=== PATIENT | male | born 1940 | race Caucasian/White ===

== ENCOUNTER 2020-09-19 19:51 | Inpatient (IN) | payer MEDICARE, OTHER ==
[~2020-09-19] VITALS: Ht 172.7 cm; Wt 68.9 kg
[2020-09-19 20:00] VITALS: BP 165/76
[2020-09-19] MEDS ORDERED: TEMAZEPAM 7.5 MG CAPSULE PO PRN (20:15)
[2020-09-19] MEDS ORDERED: MAG HYDROX/AL HYDROX/SIMETH 30 ML LIQUID UDC PO PRN (20:15)
[2020-09-19] MEDS ORDERED: MAGNESIUM HYDROXIDE 30 ML LIQUID UDC PO PRN (20:15)
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
[2020-09-19] MEDS: CLONIDINE HCL 0.1 MG TABLET PO PRN (22:02)
--- NOTE | 2020-09-19 22:45 | NUR ---
Pt's BP was 165/76 on admission. PRN Clonodin 0.1 mg Po was given at 2202. BP was rechecked to be 135/65
[2020-09-19 23:25] VITALS: BP 135/65
[2020-09-20 07:30] VITALS: BP 162/89
[2020-09-20 08:28] LABS: BILIRUBIN,TOTAL 0.4 mg/dL (0.2-1.0); CREATININE 1.1 mg/dL (0.6-1.3); POTASSIUM 4.3 mmol/L (3.5-5.1); TOTAL PROTEIN, SERUM 8.8 g/dL (6.4-8.2)
--- NOTE | 2020-09-20 09:03 | NUR ---
Firearms Report: Air Export Agent completed and submitted a [employer] firearms report for 5150 danger to others certification. A copy of report has been placed in patient chart.
--- NOTE | 2020-09-20 11:39 | NUR ---
RODRIGUEZ Initial Discharge Plan: Patient lives at address: [address] [place] [id number] with others. Patient states he has a partner, Glenys ([phone]). Patient will require a SNF placement as he does not want to go back home. RODRIGUEZ will continue to work with patient, family, and MD to ensure a safe and proper discharge plan.
--- NOTE | 2020-09-20 11:39 | NUR ---
RODRIGUEZ Family Contact: RODRIGUEZ contacted patient's partner, Glenys ([phone]) however this number is not valid.
[2020-09-20] MEDS: risperiDONE 1 MG TABLET PO SCH ×2 (14:54→17:28)
[2020-09-20 16:48] VITALS: BP 125/61
[2020-09-20 19:45] VITALS: BP 119/65
[2020-09-21 07:30] VITALS: BP 182/84
[2020-09-21] MEDS: risperiDONE 1 MG TABLET PO SCH ×3 (08:24→16:01)
--- NOTE | 2020-09-21 08:47 | NUR ---
RODRIGUEZ SNF Referral: RODRIGUEZ faxed patient's referral packet to [facility] ( ) for review and possible placement attention to [facility]. Addendum: 09/21/20 at 1303 by SHIV PIERRE Patient is accepted to facility for placement.
--- NOTE | 2020-09-21 09:44 | NUR ---
RODRIGUEZ Vale Report: RODRIGUEZ called [facility] ([phone]) and spoke with Officer Gauri who confirmed with their watch assembler that a new Danieloff report is not needed since Officer Taz placed the patient on a 5150 hold.
--- NOTE | 2020-09-21 09:59 | NUR ---
Probable Cause Hearing: Hearing was held today and was found gravely disabled and danger to others.
--- NOTE | 2020-09-21 13:00 | NUR ---
Patient approached the nursing station and stated that he pulled on his from tooth. It was observed patient holding a tooth in his right hand and a small amount of blood. patient was asked what happened. he stated "this tooth was already lose so i just pulled it out". he stated that it was not painful as the tooth was already lose. patient denied pain, he refused ice. Will continue to monitor.
[2020-09-21 16:00] VITALS: BP 138/74
--- NOTE | 2020-09-21 18:30 | NUR ---
Received patient AOx3-4, patient appears to be disorganized, isolative an withdrawn, patient remains in his room and no interest to join group therapy, patient compliant with medication, denies SI and HI, denies AH and VH, patient calm cooperative, monitored q15 for safety, assisted with ADLs, denies pain , no distress at this time
[2020-09-21 20:00] VITALS: BP 142/70
[2020-09-22 07:30] VITALS: BP 149/77
[2020-09-22] MEDS: risperiDONE 1 MG TABLET PO SCH ×3 (08:06→16:56)
[2020-09-22 15:52] VITALS: BP 131/74
[2020-09-22 20:00] VITALS: BP 168/79
[2020-09-22] MEDS: LORAZEPAM 0.5 MG TABLET PO PRN (20:08)
[2020-09-22] MEDS: CLONIDINE HCL 0.1 MG TABLET PO PRN (20:08)
--- NOTE | 2020-09-23 02:24 | NUR ---
Received patient in bed. B/P noted elevated and patient medicated with PRN Clonidine. Patient speech is garbled and patient is unable to have any meaningful conversation. This screen writer noticed that patient struggles to even answer a yes or no question. Speech is tangential and nonsensical most of the time. Redirection provided with little effect. Also noted that patient talks to self and is irritating the roommate. No physical signs of aggression, but patient requires limit setting and has responded well to that. Continuing to monitor for behavior escalation , safety and Hypertension.
--- NOTE | 2020-09-23 06:05 | NUR ---
Patient slept 6.45 hours last night. Patient is up early talking to self and antagonizing his roommate. Multiple attempts to get patient to shower, but he refuses each time. Patient has difficulty following directions and is impulsive. Continuing to monitor for safety and to redirect patient to plan of care for the day, unit rules and acceptable behavior. Patient verbalize understanding, but does not comply.
[2020-09-23 07:30] VITALS: BP 141/71
[2020-09-23] MEDS: risperiDONE 1 MG TABLET PO SCH ×3 (09:06→17:17)
[2020-09-23 16:00] VITALS: BP 138/67
--- NOTE | 2020-09-23 17:38 | NUR ---
Gps/Brine Plant Operator- Stayed in bed most of the afternoon , meds. compliant. making his simple needs known.
[2020-09-23 20:09] VITALS: BP 146/74
--- NOTE | 2020-09-24 06:24 | NUR ---
PATIENT SLEPT FOR APPROX. 6.45 HRS THROUGH THE NIGHT. HE WAS OBSERVED WITH FLIGHT OF IDEAS AND DISORGANIZED SPEECH. NO AGGRESSIVE/COMBATIVE BX NOTED AT THIS TIME. PATIENT IS REDIRECTABLE AND COMPLIANT WITH MEDICATION REGIMENT. WILL CONTINUE TO MONITOR.
[2020-09-24] MEDS: LORAZEPAM 0.5 MG TABLET PO PRN (06:52)
[2020-09-24 07:30] VITALS: BP 144/71
[2020-09-24] MEDS: risperiDONE 1 MG TABLET PO SCH ×3 (08:42→16:41)
[2020-09-24] MEDS: ACETAMINOPHEN 325 MG TABLET PO PRN ×2 (08:42→16:42)
[2020-09-24 15:11] VITALS: BP 161/82
[2020-09-24 20:00] VITALS: BP 146/74
[2020-09-25 07:30] VITALS: BP 155/67
[2020-09-25] MEDS: ACETAMINOPHEN 325 MG TABLET PO PRN (08:06)
[2020-09-25] MEDS: risperiDONE 1 MG TABLET PO SCH ×3 (08:06→16:24)
[2020-09-25 15:34] VITALS: BP 167/84
[2020-09-25 19:10] LABS: *BILIRUBIN,URIN NEGATIVE (NEGATIVE); *BLOOD, URINE NEGATIVE (NEGATIVE); *CLARITY,URINE CLEAR (CLEAR); *COLOR,URINE YELLOW (YELLOW); *KETONES,URINE NEGATIVE (NEGATIVE); *UROBILINOGEN,URINE 0.2 E.U./dl (NORMAL); LEUKOCYTE ESTERASE ,URINE NEGATIVE (NEGATIVE); NITRITE, URINE NEGATIVE (NEGATIVE); PH,URINE 6.5 (5.0-8.0); UGLUCOSE NEGATIVE (NEGATIVE)
[2020-09-25 20:00] VITALS: BP 164/85
--- NOTE | 2020-09-25 22:31 | NUR ---
RECEIVED PATIENT IN BED AWAKE. THE PATIENT REMAINS ISOLATIVE AND WITHDRAWN WITH DISORGANIZED SPEECH. THE PATIENT DENIES SI/HI. SAFE ENVIRONMENT PROVIDED, FREQUENT ROUNDING, AND CLUTTER FREE ENVIRONMENT. NO AGGRESSIVE OR COMBATIVE BEHAVIOR. BED IN LOWEST POSITION, BED LOCKED, AND BED ALARM ON WHILE IN BED.
[2020-09-26 07:30] VITALS: BP 151/76
[2020-09-26] MEDS: risperiDONE 1 MG TABLET PO SCH ×3 (08:21→18:51)
[2020-09-26 10:03] LABS: THYROID STIMULATING HORMONE 1.844 mIU/mL (0.358-3.740)
[2020-09-26 10:16] LABS: BASOPHILS % (AUTO) 0.3 % (0.0-2.0); EOSINOPHILS % (AUTO) 0.1 % (0.0-7.0); HEMATOCRIT 42.4 % (36.7-47.1); HEMOGLOBIN 13.8 g/dL (12.5-16.3); LYMPHOCYTES # (AUTO) 0.5 K/uL (20.0-40.0); LYMPHOCYTES % (AUTO) 9.7 % (20.5-51.5); MEAN CORPUSCULAR HEMOGLOBIN 30.9 uug (23.8-33.4); MEAN CORPUSCULAR HGB CONC 32 g/dL (32.5-36.3); MEAN CORPUSCULAR VOLUME 95.4 fL (73.0-96.2); MONOCYTES # (AUTO) 0.3 K/uL (2.0-10.0); MONOCYTES % (AUTO) 5.4 % (0.0-11.0); NEUTROPHILS # (AUTO) 4.4 K/uL (1.8-8.9); NEUTROPHILS % (AUTO) 84.5 % (38.5-71.5); PLATELET COUNT (AUTO) 200 K/uL (152-348); RED BLOOD CELL COUNT(AUTO) 4.45 MIL/uL (4.06-5.63); WHITE BLOOD COUNT (AUTO) 5.2 K/uL (3.6-10.2)
[2020-09-26 12:32] LABS: BILIRUBIN,TOTAL 0.2 mg/dL (0.2-1.0); CREATININE 1.1 mg/dL (0.6-1.3); PHOSPHOROUS 3.2 mg/dL (2.5-4.9); POTASSIUM 4.1 mmol/L (3.5-5.1); TOTAL PROTEIN, SERUM 8.3 g/dL (6.4-8.2)
[2020-09-26 17:18] VITALS: BP 154/73
[2020-09-26 19:45] VITALS: BP 154/76
[2020-09-27 07:30] VITALS: BP 142/76
[2020-09-27] MEDS: risperiDONE 1 MG TABLET PO SCH ×3 (08:56→16:02)
[2020-09-27 16:00] VITALS: BP 155/68
[2020-09-27 18:00] VITALS: BP 155/68
[2020-09-27 20:00] VITALS: BP 135/75
--- NOTE | 2020-09-27 21:21 | NUR ---
Received pt sleeping. Aroused easily to verbal stimuli. No acute distress noted. Denies pain/ discomfort. Denies SI/HI. Safety measures maintained. Will continue to monitor.
[2020-09-28 07:30] VITALS: BP 177/77
[2020-09-28] MEDS: risperiDONE 1 MG TABLET PO SCH ×3 (08:11→17:03)
[2020-09-28] MEDS: CLONIDINE HCL 0.1 MG TABLET PO PRN (08:11)
[2020-09-28 10:00] VITALS: BP 132/72
[2020-09-28 16:00] VITALS: BP 153/70
[2020-09-28] MEDS: ACETAMINOPHEN 325 MG TABLET PO PRN (18:05)
[2020-09-28 20:00] VITALS: BP 152/72
--- NOTE | 2020-09-28 20:45 | NUR ---
Pt is being discharge to Med Surg due to positive Covid test. Pt is on isolation. Pt verbalizes understanding of the need of isolation. Report was given to ERNESTO Harvey. Pt is being transferred to room 330.
[2020-09-29] MEDS ORDERED: LISINOPRIL 5 MG TABLET PO SCH (09:00)
--- NOTE | 2020-10-01 09:20 | NUR ---
Transfer Note: Patient was transferred to [facility] due to testing positive for COVID. Patient will be discharged to [facility], [address] [address] ([phone]) upon discharge. Web Application Developer spoke with Filomena, Patch Setter at [facility] ([phone]) who confirmed that patient will be accepted. Patient does not have any family. Patient is homeless and will need to sign the homeless waiver form upon discharge.
[2020-10-02] MEDS ORDERED: ACET325T53 PO (17:16)
[2020-10-02] MEDS ORDERED: CHOL10002 PO (17:16)
[2020-10-02] MEDS ORDERED: HYDR-4384 PO (17:16)
[2020-10-02] MEDS ORDERED: RISP0.5T5 PO ×2 (17:16)
[2020-10-02] MEDS ORDERED: ZOLP5TAB8 PO (17:16)
[2020-10-02] MEDS ORDERED: ASCO500T21 PO (17:16)
[2020-10-02] MEDS ORDERED: MAGN400O6 PO (17:16)
[2020-10-02] MEDS ORDERED: ASPI81TA31 PO (17:16)
[2020-10-02] MEDS ORDERED: DEXA4TAB PO (17:16)
== END 2020-09-28 20:50 | disposition short-term general hospital (02) | DRG 885 ==
LOC: GPS 19:51
PROVIDERS: ADMIT Psychiatry & Neurology Psychosomatic Medicine; ATTEND Internal Medicine
DX: F29 Unspecified psychosis not due to a substance or known physiological condition (principal); U07.1 COVID-19; N17.0 Acute kidney failure with tubular necrosis; F20.9 Schizophrenia, unspecified; R73.9 Hyperglycemia, unspecified
CPT/HCPCS: 36415; 71045; 83605; 83615; 83735; 84100; 84443; 85025; 86140; 87086; 93005; A4663; U0003

== ENCOUNTER 2020-09-28 21:31 | Inpatient (IN) | payer MEDICARE, OTHER ==
[~2020-09-28] VITALS: Ht 177.8 cm; Wt 70.3 kg
--- NOTE | 2020-09-28 21:30 | NUR ---
Pt admitted at 2114. Came from [facility] due to positive Covid test via wheelchair. Pt is ambulatory, On RA sating at 97%. Denies pain or SOB. Assessment complete. Belongings accounted for. No other issues or concerns at this time.
[2020-09-28] MEDS ORDERED: ZOLPIDEM 5 MG TABLET PO PRN (22:30)
[2020-09-28] MEDS ORDERED: HYDROCODONE/APAP 5-325MG TABLET PO PRN (22:30)
[2020-09-28] MEDS ORDERED: MAGNESIUM HYDROXIDE 30 ML LIQUID UDC PO PRN (22:30)
[2020-09-28] MEDS ORDERED: ACETAMINOPHEN 325 MG TABLET PO PRN (22:30)
[2020-09-28] MEDS ORDERED: ONDANSETRON 4 MG/2 ML VIAL IV PRN (22:30)
[2020-09-28] MEDS: ENOXAPARIN SODIUM 40 MG/0.4 ML DISP.SYRIN SQ SCH (22:45)
--- NOTE | 2020-09-28 23:00 | NUR ---
Enoxaparin Sodium 40mg is empty in Pyxis. Faxed order to nursing service transformer repair supervisor. Waiting for medication to be delivered.
[2020-09-28 23:35] VITALS: BP 171/75
[2020-09-29] MEDS ORDERED: ENOXAPARIN SODIUM 40 MG/0.4 ML DISP.SYRIN SQ ONE (00:41)
[2020-09-29 04:40] VITALS: BP 169/86
--- NOTE | 2020-09-29 06:20 | NUR ---
pt is refusing IV at this time
[2020-09-29] MEDS ORDERED: CLONIDINE HCL 0.1 MG TABLET PO ONE (06:45)
--- NOTE | 2020-09-29 06:54 | NUR ---
Pt slept throughout the night. Denies pain or SOB. On RA sating at 98%. BP was 169/86 and a one time dose of Clonidine was ordered for pt. Tried to start IV again and patient declined. No other issues or concerns at this time. Will endorse to day shift.
[2020-09-29 09:25] LABS: BASOPHILS % (AUTO) 0.2 % (0.0-2.0); EOSINOPHILS % (AUTO) 0.3 % (0.0-7.0); HEMATOCRIT 38.6 % (36.7-47.1); HEMOGLOBIN 13.2 g/dL (12.5-16.3); LYMPHOCYTES # (AUTO) 0.7 K/uL (20.0-40.0); LYMPHOCYTES % (AUTO) 20.1 % (20.5-51.5); MEAN CORPUSCULAR HEMOGLOBIN 31.2 uug (23.8-33.4); MEAN CORPUSCULAR HGB CONC 34 g/dL (32.5-36.3); MEAN CORPUSCULAR VOLUME 91.3 fL (73.0-96.2); MONOCYTES # (AUTO) 0.4 K/uL (2.0-10.0); MONOCYTES % (AUTO) 10.8 % (0.0-11.0); NEUTROPHILS # (AUTO) 2.4 K/uL (1.8-8.9); NEUTROPHILS % (AUTO) 68.6 % (38.5-71.5); PLATELET COUNT (AUTO) 180 K/uL (152-348); RED BLOOD CELL COUNT(AUTO) 4.23 MIL/uL (4.06-5.63); WHITE BLOOD COUNT (AUTO) 3.5 K/uL (3.6-10.2)
[2020-09-29 09:48] LABS: PHOSPHOROUS 3.5 mg/dL (2.5-4.9); POTASSIUM 4.5 mmol/L (3.5-5.1)
[2020-09-29 12:02] VITALS: BP 118/68
[2020-09-29 16:00] VITALS: BP 130/63
[2020-09-29] MEDS: risperiDONE 0.5 MG TABLET PO SCH ×2 (17:32→21:40)
--- NOTE | 2020-09-29 19:45 | NUR ---
NSG: Received patient lying in bed. no c/o pain or discomfort at this time. no sob noted. compliant with meds. call light w/in reach.
--- NOTE | 2020-09-29 20:33 | NUR ---
Patient stable throughout shift, on RA denied SOB or distress at this time. Denied SI and HI. Seen by Dr. Mathews. Safety precaution in place. No other complaints
[2020-09-29 20:48] VITALS: BP 145/75
[2020-09-29] MEDS: ENOXAPARIN SODIUM 40 MG/0.4 ML DISP.SYRIN SQ SCH (21:41)
--- NOTE | 2020-09-30 05:13 | NUR ---
patient is resting in bed. no c/o pain or discomfort at this time. call light w/in reach.
[2020-09-30 05:53] VITALS: BP 153/79
[2020-09-30] MEDS: risperiDONE 0.5 MG TABLET PO SCH ×3 (08:58→20:58)
[2020-09-30 10:04] LABS: BASOPHILS # (AUTO) 0.1 K/uL (0.0-8.0); BASOPHILS % (AUTO) 2.5 % (0.0-2.0); EOSINOPHILS % (AUTO) 0.2 % (0.0-7.0); HEMATOCRIT 41.5 % (36.7-47.1); HEMOGLOBIN 14.1 g/dL (12.5-16.3); LYMPHOCYTES # (AUTO) 0.6 K/uL (20.0-40.0); LYMPHOCYTES % (AUTO) 13.5 % (20.5-51.5); MEAN CORPUSCULAR HEMOGLOBIN 31.3 uug (23.8-33.4); MEAN CORPUSCULAR HGB CONC 34 g/dL (32.5-36.3); MEAN CORPUSCULAR VOLUME 91.9 fL (73.0-96.2); MONOCYTES # (AUTO) 0.5 K/uL (2.0-10.0); MONOCYTES % (AUTO) 10.4 % (0.0-11.0); NEUTROPHILS # (AUTO) 3.4 K/uL (1.8-8.9); NEUTROPHILS % (AUTO) 73.4 % (38.5-71.5); PLATELET COUNT (AUTO) 214 K/uL (152-348); RED BLOOD CELL COUNT(AUTO) 4.51 MIL/uL (4.06-5.63); WHITE BLOOD COUNT (AUTO) 4.6 K/uL (3.6-10.2)
[2020-09-30 10:18] LABS: BILIRUBIN,TOTAL 0.4 mg/dL (0.2-1.0); PHOSPHOROUS 3.2 mg/dL (2.5-4.9); POTASSIUM 3.9 mmol/L (3.5-5.1); TOTAL PROTEIN, SERUM 8.8 g/dL (6.4-8.2)
[2020-09-30] MEDS: ASPIRIN 81 MG TAB.CHEW PO SCH (11:41)
[2020-09-30] MEDS: ASCORBIC ACID 500 MG TABLET PO SCH (11:41)
[2020-09-30] MEDS: DEXAMETHASONE SOD PHOSPHATE 4 MG INJ IV SCH (11:43)
[2020-09-30] MEDS: CHOLECALCIFEROL 1,000 UNIT TABLET PO SCH (11:49)
[2020-09-30 13:18] VITALS: BP 143/80
[2020-09-30 20:47] VITALS: BP 148/88
[2020-09-30] MEDS: ENOXAPARIN SODIUM 40 MG/0.4 ML DISP.SYRIN SQ SCH (20:58)
[2020-10-01 04:40] VITALS: BP 151/86
--- NOTE | 2020-10-01 07:45 | NUR ---
Received PT in bed, awake AO X 4. PT makes needs known to staff. PT seemed anxious to his "case" and wants to know how long he will stay here. Nurse educated PT about the importance of his diagnosis with COVID and how it is priority. PT understands and is cooperative. Safety measures provided, call light within reach, bed low and lock. Will continue to monitor.
--- NOTE | 2020-10-01 08:04 | NUR ---
Transfer Note: Patient was transferred to [facility] due to testing positive for COVID. Patient will be discharged to [facility], [address] [address] ([phone]) upon discharge. Graining Operator spoke with Filomena, Magazine Grinder Loader at [facility] ([phone]) who confirmed that patient will be accepted. Patient does not have any family. Patient is homeless and will need to sign the homeless waiver form upon discharge.
[2020-10-01 08:51] LABS: HEMATOCRIT 39.1 % (36.7-47.1); HEMOGLOBIN 13.6 g/dL (12.5-16.3); LYMPHOCYTES # (AUTO) 0.8 K/uL (20.0-40.0); LYMPHOCYTES % (AUTO) 13.4 % (20.5-51.5); MEAN CORPUSCULAR HEMOGLOBIN 31.6 uug (23.8-33.4); MEAN CORPUSCULAR HGB CONC 35 g/dL (32.5-36.3); MEAN CORPUSCULAR VOLUME 90.9 fL (73.0-96.2); MONOCYTES # (AUTO) 0.5 K/uL (2.0-10.0); MONOCYTES % (AUTO) 8.8 % (0.0-11.0); NEUTROPHILS # (AUTO) 4.5 K/uL (1.8-8.9); NEUTROPHILS % (AUTO) 77.8 % (38.5-71.5); PLATELET COUNT (AUTO) 240 K/uL (152-348); WHITE BLOOD COUNT (AUTO) 5.8 K/uL (3.6-10.2)
[2020-10-01 08:55] LABS: CREATININE 1.1 mg/dL (0.6-1.3); MAGNESIUM 1.9 mg/dL (1.8-2.4); PHOSPHOROUS 3.8 mg/dL (2.5-4.9); POTASSIUM 4.4 mmol/L (3.5-5.1)
[2020-10-01] MEDS: DEXAMETHASONE SOD PHOSPHATE 4 MG INJ IV SCH ×2 (09:00→10:08)
[2020-10-01] MEDS: ASCORBIC ACID 500 MG TABLET PO SCH (10:07)
[2020-10-01] MEDS: ASPIRIN 81 MG TAB.CHEW PO SCH (10:07)
[2020-10-01] MEDS: risperiDONE 0.5 MG TABLET PO SCH ×3 (10:07→22:15)
[2020-10-01] MEDS: CHOLECALCIFEROL 1,000 UNIT TABLET PO SCH (10:08)
[2020-10-01 11:56] VITALS: BP 140/71
[2020-10-01] MEDS: DEXAMETHASONE 4 MG TABLET PO SCH (13:21)
[2020-10-01 15:49] VITALS: BP 134/67
--- NOTE | 2020-10-01 19:35 | NUR ---
Report given to third shift lieutenant nurse. PT in bed, awake with safety measures. No acute distress or SOB. No complain of pain. Safety measures provided, call light within reach, bed low and lock.
[2020-10-01 20:21] VITALS: BP 132/72
--- NOTE | 2020-10-01 22:15 | NUR ---
Patient in bed .awake able to make needs know. On room air.Denied pain or SOB. Ambulates to bathroom .Voided well.BM 2x .Compliant with medications.Continue safety measures and isolation for covid. Will continue to monitor.
[2020-10-01] MEDS: ENOXAPARIN SODIUM 40 MG/0.4 ML DISP.SYRIN SQ SCH (23:01)
[2020-10-01] MEDS ORDERED: ENOXAPARIN SODIUM 40 MG/0.4 ML DISP.SYRIN SQ ONE (23:01)
[2020-10-02 04:24] VITALS: BP 146/71
[2020-10-02] MEDS: DEXAMETHASONE 4 MG TABLET PO SCH (10:12)
[2020-10-02] MEDS: risperiDONE 0.5 MG TABLET PO SCH ×3 (10:12→20:13)
[2020-10-02] MEDS: ASPIRIN 81 MG TAB.CHEW PO SCH (10:12)
[2020-10-02] MEDS: CHOLECALCIFEROL 1,000 UNIT TABLET PO SCH (11:14)
[2020-10-02] MEDS: ASCORBIC ACID 500 MG TABLET PO SCH (11:15)
[2020-10-02 12:00] VITALS: BP 148/74
--- NOTE | 2020-10-02 15:38 | NUR ---
SNF Referral: This SW sent referral packet to [facility] ([phone]). This SW sent H & P notes, progress notes, and medication list. Lucy will follow-up with this teletypewriter operator if pt is accepted to a COVID positive facility.
[2020-10-02 16:00] VITALS: BP 140/69
[2020-10-02] MEDS ORDERED: MAGN400O6 PO (17:16)
[2020-10-02] MEDS ORDERED: CHOL10002 PO (17:16)
[2020-10-02] MEDS ORDERED: ASCO500T21 PO (17:16)
[2020-10-02] MEDS ORDERED: ACET325T53 PO (17:16)
[2020-10-02] MEDS ORDERED: RISP0.5T5 PO ×2 (17:16)
[2020-10-02] MEDS ORDERED: ASPI81TA31 PO (17:16)
[2020-10-02] MEDS ORDERED: ZOLP5TAB8 PO (17:16)
[2020-10-02] MEDS ORDERED: DEXA4TAB PO (17:16)
[2020-10-02] MEDS ORDERED: HYDR-4384 PO (17:16)
[2020-10-02 20:03] VITALS: BP 158/76
[2020-10-02] MEDS: ENOXAPARIN SODIUM 40 MG/0.4 ML DISP.SYRIN SQ SCH (20:20)
--- NOTE | 2020-10-02 20:20 | NUR ---
Received pt resting in bed. AAO x3. No acute distress noted. Denies pain/ discomfort. Due med given as ordered. Pt refused Lovenox. Risks and benefits explained, still refused. Pt to be discharge. Report given to Dina from [facility]. Safety measures maintained. On isolation. Call light and personal items within reach. Will continue to monitor.
--- NOTE | 2020-10-02 20:26 | NUR ---
patient in room, AOx3, a little anxious regarding DC plan, kept asking the same questions. On RA, denied SOB or distress at this time. DC instructions and forms prepared for DC. Belongings list signed and all accounted for. Removed ID band. Endorsed DC plan to PM shift nurse
--- NOTE | 2020-10-02 22:45 | NUR ---
Pt discharged, picked up by ambulance via gurney. No acute distress noted. Belonging's sent with patient. Pt very excited to be discharge.
== END 2020-10-02 21:30 | DRG 179 ==
LOC: MEDSURG3 21:31
PROVIDERS: ADMIT Nurse Practitioner Acute Care; ATTEND Internal Medicine
DX: U07.1 COVID-19 (principal); F25.0 Schizoaffective disorder, bipolar type; I10 Essential (primary) hypertension; R73.9 Hyperglycemia, unspecified; R53.1 Weakness; R79.89 Other specified abnormal findings of blood chemistry
CPT/HCPCS: 36415; 70030-TC; 83605; 83735; 84100; 85025; A4663; G0378; J1100; J1650; J8540